=== PATIENT | male | born 1985 | race Caucasian/White ===

== ENCOUNTER 2020-05-16 18:38 | Emergency (ER) | payer OTHER ==
[~2020-05-16] VITALS: Ht 180.3 cm; Wt 109.0 kg
--- NOTE | 2020-05-16 18:46 | PHYS DOC ---
General Adult EDM: Chief Complaint: SKIN PROBLEM HPI: HPI: ".. I got this abscess down here on my leg.. had it for a while.. been picking at it to try and get it to drain..." Patient is a 34 year old MALE who presents with above hx and complaints 4 x 6 cm area of cellulitis with central abscess approximately 2 x 3 cm. Patient states she has had these abscesses before and even in the same place. Patient denies any history of HIV or immunosuppression. Patient denies any recent travel outside [facility]. Patient does not remember his last tetanus. Review of Systems: Review of Systems: Constitutional: Denies fever or chills Eyes: Denies change in visual acuity HENT: Denies nasal congestion or sore throat Respiratory: Denies cough or shortness of breath Cardiovascular: Denies chest pain or edema GI: Denies abdominal pain, nausea, vomiting, bloody stools or diarrhea : Denies dysuria Musculoskeletal: Denies back pain or joint pain Integument: Complaints abscess. Neurologic: Denies headache, focal weakness or sensory changes Endocrine: Denies polyuria or polydipsia Lymphatic: Denies swollen glands Psychiatric: Denies depression or anxiety Heart Score: Risk Factors: Risk Factors: DM, Current or recent (<one month) smoker, HTN, HLP, family history of CAD, obesity. Risk Scores: Score 0 - 3: 2.5% MACE over next 6 weeks - Discharge Home Score 4 - 6: 20.3% MACE over next 6 weeks - Admit for Clinical Observation Score 7 - 10: 72.7% MACE over next 6 weeks - Early Invasive Strategies Family History: Family History: Noncontributory to presentation Current Medications: Current Meds: See nursing for home meds Allergies: Allergies: No known drug allergies Physical Exam: PE: Constitutional: Well developed, well nourished, in moderate acute distress, non-toxic appearance. [] HENT: Normocephalic, atraumatic, bilateral external ears normal, oropharynx moist, no oral exudates, nose normal. [] Eyes: PERRLA, EOMI, conjunctiva normal, no discharge. [] Neck: Normal range of motion, no tenderness, supple, no stridor. [] Cardiovascular:Heart rate regular rhythm, no murmur [] Lungs & Thorax: Bilateral breath sounds clear to auscultation [] Abdomen: Bowel sounds normal, soft, no tenderness, no masses, no pulsatile masses. [] Skin: Warm, dry, no erythema, no rash. Abscess right groin-upper thigh as per HPI. There is some striation and surrounding adenopathy Back: No tenderness, no CVA tenderness. [] Extremities: No tenderness, no cyanosis, no clubbing, ROM intact, no edema. [] Neurologic: Alert and oriented X 3, normal motor function, normal sensory function, no focal deficits noted. [] Psychologic: Affect anxious, judgement normal, mood normal. [] EKG: EKG: [] Radiology/Procedures: Radiology/Procedures: [] Course & Med Decision Making: Course & Med Decision Making Pertinent Labs and Imaging studies reviewed. (See chart for details) Procedure note - Lt.thigh area area cleaned with Betadine he has 11 blade with stick return of mucopurulent material. Packed with Iodo guaze. Dressing with Bactracin. Pt. received 1 g of Rocephin IM Bactrim DS update of tetanus and morphine 10 mg subcu. Patient to use warm sits baths or compresses with salt water or Epsom salts 4 times a day. And then apply Polysporin. The packing does not fall out to have removed in 3 days. If recurrence of lesion may need a complete excision of area by surgeon. Follow-up primary care. Return if any concerns. Impression- 1. Abscess and cellulitis left groin [] Dragon Disclaimer: Dragon Disclaimer: This electronic medical record was generated, in whole or in part, using a voice recognition dictation system. Departure Departure: Disposition: HOME/RESIDENCE PRIOR TO ADM Condition: STABLE Referrals: PCP,NO (PCP) Scripts Sulfamethoxazole/Trimethoprim (BACTRIM DS TABLET) 1 Each Tablet 1 TAB PO BID for abscess for 10 Days, #20 TAB 0 Refills Prov: PRETTY HERNANDEZ MD 05/16/20 Justification of Admission: Justification of Admission: Justification of Admission Dx: N/A Dragon Disclaimer This chart was dictated in whole or in part using Voice Recognition software in a busy, high-work load, and often noisy Emergency Department environment. It may contain unintended and wholly unrecognized errors or omissions. PRETTY HERNANDEZ MD May 16, 2020 18:45
[2020-05-16 18:59] VITALS: BP 132/80
[2020-05-16] MEDS ORDERED: cefTRIAXone SODIUM 1 GM VIAL ONE (19:09)
[2020-05-16] MEDS ORDERED: SMZ/TMP 800/160MG TABLET. PO ONE ×2 (19:09→19:30)
[2020-05-16] MEDS ORDERED: BACITRACIN ZINC TOPICAL OINT PACKET. TP ONE ×2 (19:09→19:30)
[2020-05-16] MEDS ORDERED: MORPHINE SULFATE 10 MG/ML SYRINGE. ONE (19:10)
[2020-05-16] MEDS ORDERED: DIPH,PERTUSS(ACELL),TET VAC/PF 0.5 ML SYRINGE. VAX IM ONE ×2 (19:10→19:30)
[2020-05-16] MEDS ORDERED: SULF1TAB24 PO (19:24)
[2020-05-16] MEDS ORDERED: MORPHINE SULFATE 10 MG/ML SYRINGE. SQ ONE (19:30)
[2020-05-16] MEDS ORDERED: cefTRIAXone IM 1 GM VIAL IM ONE (19:30)
== END 2020-05-16 19:30 | disposition home or self-care (01) ==
LOC: ER 18:38
DX: L02.214 Cutaneous abscess of groin (principal); L03.314 Cellulitis of groin
CPT/HCPCS: 10060; 90471; 90715; 96372; 99284; J0696; J2270